=== PATIENT | male | born 1995 | race African-American/Black ===

== ENCOUNTER 2020-02-14 12:25 | Emergency (ER) | payer SELFPAY ==
--- NOTE | ~2020-02-14 | XR_ITS ---
EXAMINATION: XR foot LT min 3V DATE: 02/14/2020 12:58 INDICATION: Left foot trauma post kicking injury. TECHNIQUE: Dorsoplantar, two oblique and lateral views of the left foot were obtained. COMPARISON: None. FINDINGS: Alignment is normal. There is small focal depressions of the cortical contour but with smooth margins along the juxtaposed articular surfaces of the cuboid and base of the fifth metatarsal. Both appeara nce and the relatively well-defined location centrally along the articular surfaces would be atypical for fracture and favor that this is developmental no other lesions suspicious for fracture identifie d. Joint spaces are otherwise normal. Soft tissues are unremarkable. IMPRESSION: 1. Focal depressions along the articular surfaces of the base of the fifth metatarsal juxtaposed cubo id with smooth cortical margins which favors a developmental variant of indeterminate etiology or sig nificance rather than acute fracture. Nonetheless would correlate for point tenderness at this locati on. Reviewed, dictated and finalized at location A. ESTATE TRANSACTION MANAGER IMPRESSION: 1. Focal depressions along the articular surfaces of the base of the fifth meta tarsal juxtaposed cuboid with smooth cortical margins which favors a developmen stephan variant of indeterminate etiology or significance rather than acute fractur e. Nonetheless would correlate for point tenderness at this location.
[2020-02-14 12:34] VITALS: BP 146/87; PULSE 68; RESP 18; TEMP 36.4; O2SAT 100
--- NOTE | 2020-02-14 12:54 | ED.ABDPAIN ---
HPI - Abdominal Pain General Chief Complaint: Extremity Injury, Lower Stated Complaint: toe pain Time Seen by Provider: 02/14/20 12:27 Source: patient Mode of arrival: ambulatory Limitations: no limitations History of Present Illness HPI narrative: Patient a 24-year-old male who presents to emergency department for evaluation of injury of the left foot that occurred this morning injuring the pinky toe patient called 911 to be brought to the emergency department for evaluation of his pain which is a moderate aching pain worse with weightbearing and activity. Related Data Allergies Allergy/AdvReac Type Severity Reaction Status Date / Time No Known Allergies Allergy Verified 02/14/20 12:38 Review of Systems Review of Systems: All systems reviewed & are unremarkable except as noted in HPI and below PMFSH Social History Social History (Updated 02/14/20 @ 12:54 by Dada Cornejo PA-C) Smoking status: Never smoker Exam Narrative: Exam Narrative: GENERAL: Well-appearing, well-nourished, and in no acute distress. HEAD: Normocephalic, atraumatic. EYES: PERRLA and EOMI. ENT: Nares clear, no rhinorrhea or epistaxis. Mucous membranes moist. EXTREMITIES: Normal range of motion. No edema. Tenderness and bruising of the left pinky toe SKIN: Warm, dry, no rash. NEURO: No focal deficits. Alert and oriented x3. Cranial nerves II through XII grossly intact. Neurovascularly intact PSYCH: Normal mood and affect. Procedures Orthopedic Splinting/Casting Injury #1: Splinting/Casting Date: 02/14/20 Splinting/Casting Time: 14:20 Side: left Lower Extremity Injury Location: foot Pre-Formed: post op shoe Pre-Procedure Neuro Vascular Exam: normal Post-Procedure Neuro Vascular Exam: normal Course Course Emergency Course: Patient in the room no distress aware of case findings treatment plan diagnosis. Patient will follow with primary care upon returning home placed in postop shoe Vital Signs Vital signs: Vital Signs Temperature 97.5 F L 02/14/20 12:34 Pulse Rate 68 02/14/20 12:34 Respiratory Rate 18 02/14/20 12:34 Blood Pressure 146/87 H 02/14/20 12:34 Pulse Oximetry 100 02/14/20 12:34 Temperature 97.5 F L 02/14/20 12:34 Pulse Rate 68 02/14/20 12:34 Respiratory Rate 18 02/14/20 12:34 Blood Pressure 146/87 H 02/14/20 12:34 Pulse Oximetry 100 02/14/20 12:34 MDM - Abdominal Pain MDM Narrative Medical decision making narrative: Patients injury or pain is consistent with musculoskeletal etiology. No signs of neurological or vascular compromise on exam. Compartments and tisues are soft without signs of compartment syndrome. Pain is felt appropriate for further evaluation on an outpatient basis. Imaging Data Radiologist's impression: ITS Impressions Foot X-Ray 02/14/20 13:28 IMPRESSION: 1. Focal depressions along the articular surfaces of the base of the fifth metatarsal juxtaposed cuboid with smooth cortical margins which favors a developmental variant of indeterminate etiology or significance rather than acute fracture. Nonetheless would correlate for point tenderness at this location. Discharge Plan Discharge Clinical Impression: Injury of foot, left Patient Disposition: Home, Self-Care Condition: Stable Instructions: Antibiotic Form, Foot Sprain (ED) Additional Instructions: Wear postop shoe with limited weight on the affected leg until able to bear weight without pain. Ice and elevate extremity. Pain medication as needed and directed. Follow up with your doctor for further care in the next 7 days. Prescriptions: New ibuprofen [IBU] 600 mg tablet 600 mg PO QID PRN (Reason: fever or pain) Qty: 7 RF: 0 Follow-up/Referrals: Prabhu Hale MD [Physician] - PHYSICIAN,BLOW TORCH OPERATOR [Primary Care Provider] -
[2020-02-14] MEDS: IBUPROFEN 600 MG TABLET PO (12:56)
== END 2020-02-14 14:30 | disposition home or self-care (01) ==
PROVIDERS: Emergency Provider Emergency Medicine
DX: S99.922A Unspecified injury of left foot, initial encounter (principal); W22.8XXA Striking against or struck by other objects, initial encounter
CPT/HCPCS: 73630; 99283; A9270